=== PATIENT | male | born 1990 | race Caucasian/White ===

== ENCOUNTER → 2023-03-27 | Outpatient (CLI) | payer BC | LOC: CARDREHAB 13:29 | DX: G47.34 Idiopathic sleep related nonobstructive alveolar hypoventilation (principal) | CPT/HCPCS: G0399 ==

== ENCOUNTER → 2024-02-19 | Outpatient (CLI) | payer BC | LOC: LAB 15:52 | DX: Z13.1 Encounter for screening for diabetes mellitus (principal) ==

== ENCOUNTER → 2024-03-31 | Outpatient (CLI) | payer BC ==
[2024-03-31 10:47] LABS: URINE APPEARANCE CLEAR (CLEAR); URINE BILIRUBIN NEGATIVE (NEGATIVE); URINE BLOOD NEGATIVE (NEGATIVE); URINE COLOR YELLOW (YELLOW); URINE GLUCOSE NEGATIVE (NEGATIVE); URINE KETONE NEGATIVE (NEGATIVE); URINE LEUKOCYTE ESTERASE NEGATIVE (NEGATIVE); URINE MUCUS PRESENT (NOT PRESENT); URINE NITRATE NEGATIVE (NEGATIVE); URINE PROTEIN(semi-quant) NEGATIVE (NEGATIVE); URINE WBC 0-1 /hpf (0-3)
== END ==
LOC: LAB 10:25
PROVIDERS: Family Medicine
DX: R86.9 Unspecified abnormal finding in specimens from male genital organs (principal)

== ENCOUNTER → 2024-04-01 | Outpatient (CLI) | payer BC | LOC: LAB 06:58 | DX: R86.9 Unspecified abnormal finding in specimens from male genital organs (principal) ==